=== PATIENT | male | born 1950 | race Caucasian/White ===

== ENCOUNTER 2016-02-14 18:26 | Observation (INO) | payer MEDICARE, OTHER ==
[2016-02-14] VITALS (7 sets, daily range): BP systolic 143–185; BP diastolic 76–95; PULSE 65–70; RESP 18–20; TEMP 98.2–98.7; O2SAT 96–98
[~2016-02-14] VITALS: Ht 193 cm; Wt 136.4 kg
[~2016-02-14 18:26] MED LIST: AMLO10 PO; ASPI81 PO; CLON1 PO; COZA100T PO; DICL75 PO; FOLI1TAB PO; GABA250S PO; HYDR-3533 PO; HYDR50TA15 PO; METF-324 PO; METH5SOL3 PO; NOVALIN 70/30 SQ; NOVO7030P2 SQ; OMEP20CA5 PO; SIMV20 PO; TOPR100T15 PO; VOLTAREN GEL TOP
--- NOTE | 2016-02-14 18:36 | PD ---
HPI Chief Complaint: chest pain Time Seen by Provider: 18:36 Travel History International Travel<30 days: No Contact w/Intl Traveler<30days: No History of Present Illness HPI 65-year-old male presents to the emergency department for evaluation of midsternal chest pain that radiates with numbness to both of his arms. Patient states this feels exactly how he felt when he had his last heart attack in 2000. He states that he had a stent placed to his right coronary artery in [place]. His current microfilm processor is Dr. Horn. He denies any recent stress test or cardiac catheterization. Patient states that he got 2 sprays of nitroglycerin on the ambulance which did help his pain. Patient took one aspirin at home and got another aspirin in route. He has a history of diabetes , hypertension, COPD, arthritis. Patient denies any weakness or syncope. Patient denies any recent surgeries or travel. Denies any abnormal leg swelling. No hemoptysis. Denies any cough or congestion. Patient states symptoms started at 3 PM with numbness to the right arm and then progressed to chest pain and left arm as well. PFSH Past Medical History COPD: Yes Coronary Artery Disease: Yes Diabetes: Yes Diminished Hearing: No GERD: Yes Hypertension: Yes Immunizations Current: No Past Surgical History Coronary Stent: Yes (x1 ) Other Surgery: Yes (carpal tunnel bilat, l inguinal hernia) Social History Alcohol Use: No Tobacco Use: No Substance Use: No Allergies-Medications (Allergen,Severity, Reaction): Coded Allergies: No Known Allergies (Verified , 02/14/16) Reported Meds & Prescriptions Reported Meds & Active Scripts Active Reported Lipitor (Atorvastatin Calcium) 80 Mg Tab 80 Mg PO HS Klonopin (Clonazepam) 1 Mg Tab 1 Mg PO BID Remeron (Mirtazapine) 30 Mg Tab 30 Mg PO HS Gabapentin 300 Mg Cap 300 Mg PO TID Omeprazole 20 Mg Cap Levothyroxine (Levothyroxine Sodium) 75 Mcg Tab 75 Mcg PO DAILY Lopressor (Metoprolol Tartrate) 50 Mg Tab 50 Mg PO BID Coreg (Carvedilol) 6.25 Mg Tab 6.25 Mg PO BID Maxidex Opth Drops (Dexamethasone Opth Drops) 0.1% Susp 1 Drop EACH EYE Q4H Incruse Ellipta Inh (Umeclidinium [place] Inh) 0.0625 Mg/Act Inh 62.5 Mcg INH DAILY Prazosin (Prazosin HCl) 2 Mg Cap 2 Mg PO BID Clonidine 168 HR Patch (Clonidine HCl) 0.2 Mg/24 Hr Patch 1 Patch T-DERMAL Q7D Lantus Solostar Pen Inj (Insulin Glargine) 300 Unit/3 Ml Pen 1 Units SQ Novolog Flexpen Inj (Insulin Aspart) 300 Unit/3 Ml Pen 1 Units SQ Ventolin Hfa 18 GM Inh (Albuterol Sulfate) 90 Mcg/Act Aer 2 Puff INH Q4-6H PRN Centrum Silver (Multiple Vitamins W/ Minerals) 1 Tab 1 Tab PO DAILY Aspirin 81 Mg Chew 81 Mg CHEW DAILY Review of Systems Except as stated in HPI: all other systems reviewed are Neg Physical Exam Narrative GENERAL: Well-developed well-nourished male patient, afebrile. SKIN: Warm and dry. HEAD: Normocephalic. Atraumatic. EYES: No scleral icterus. No injection or drainage. NECK: Supple, trachea midline. No JVD or lymphadenopathy. CARDIOVASCULAR: Regular rate and rhythm without murmurs, gallops, or rubs. RESPIRATORY: Breath sounds equal bilaterally. No accessory muscle use. Lungs sounds are clear to auscultation. GASTROINTESTINAL: Abdomen soft, non-tender, nondistended. MUSCULOSKELETAL: No cyanosis, or edema. BACK: Nontender without obvious deformity. No CVA tenderness. Data Data Last Documented VS Vital Signs Date Time Temp Pulse Resp B/P Pulse Ox O2 Delivery O2 Flow Rate FiO2 02/14/16 19:46 146/95 02/14/16 19:33 65 18 98 Nasal Cannula 2 02/14/16 18:28 98.2 Orders Electrocardiogram (02/14/16 18:35) Basic Metabolic Panel (Bmp) (02/14/16 18:35) Ckmb (Isoenzyme) Profile (02/14/16 18:35) Complete Blood Count With Diff (02/14/16 18:35) Magnesium (Mg) (02/14/16 18:35) Troponin I (02/14/16 18:35) Chest, Single Ap (02/14/16 18:35) Ecg Monitoring (02/14/16 18:35) Bilateral Bp Monitoring (02/14/16 18:35) Iv Access Insert/Monitor (02/14/16 18:35) Oximetry (02/14/16 18:35) Oxygen Administration (02/14/16 18:35) Sodium Chloride 0.9% Flush (Ns Flush) (02/14/16 18:45) CKMB (02/14/16 18:48) CKMB% (02/14/16 18:48) Admit Order (Ed Use Only) (02/14/16 20:04) Activity Bed Rest With Brp (02/14/16 20:06) Vital Signs (Adult) Q4H (02/14/16 20:06) Cardiac Rhythm .As Directed (02/14/16 20:06) ^ Notify Dr: Other .PRN (02/14/16 20:06) ^ Notify Dr. Parameters (02/14/16 20:06) Resp Oxygen Nasal Cannula (02/14/16 ) Ckmb (Isoenzyme) Profile (02/14/16 21:48) Ckmb (Isoenzyme) Profile (02/15/16 00:48) Troponin I (02/14/16 21:48) Troponin I (02/15/16 00:48) Electrocardiogram (02/14/16 21:48) Electrocardiogram (02/15/16 00:48) ^ Obtain (02/14/16 20:06) Sodium Chloride 0.9% Flush (Ns Flush) (02/14/16 20:15) Sodium Chloride 0.9% Flush (Ns Flush) (02/14/16 21:00) Labs Laboratory Tests Test 02/14/16 18:48 White Blood Count 5.7 TH/MM3 Red Blood Count 4.66 MIL/MM3 Hemoglobin 13.6 GM/DL Hematocrit 40.6 % Mean Corpuscular Volume 87.0 FL Mean Corpuscular Hemoglobin 29.1 PG Mean Corpuscular Hemoglobin 33.5 % Concent Red Cell Distribution Width 15.0 % Platelet Count 92 TH/MM3 Mean Platelet Volume 10.5 FL Neutrophils (%) (Auto) 57.7 % Lymphocytes (%) (Auto) 28.4 % Monocytes (%) (Auto) 9.2 % Eosinophils (%) (Auto) 3.3 % Basophils (%) (Auto) 1.4 % Neutrophils # (Auto) 3.3 TH/MM3 Lymphocytes # (Auto) 1.6 TH/MM3 Monocytes # (Auto) 0.5 TH/MM3 Eosinophils # (Auto) 0.2 TH/MM3 Basophils # (Auto) 0.1 TH/MM3 CBC Comment AUTO DIFF Differential Comment AUTO DIFF CONFIRMED Platelet Estimate LOW Platelet Morphology Comment NORMAL Red Cell Morphology Comment NORMAL Sodium Level 136 MEQ/L Potassium Level 3.7 MEQ/L Chloride Level 98 MEQ/L Carbon Dioxide Level 27.9 MEQ/L Anion Gap 10 MEQ/L Blood Urea Nitrogen 20 MG/DL Creatinine 1.25 MG/DL Estimat Glomerular Filtration 58 ML/MIN Rate Random Glucose 234 MG/DL Calcium Level 8.4 MG/DL Magnesium Level 1.9 MG/DL Total Creatine Kinase 330 U/L Creatine Kinase MB 5.1 NG/ML Creatine Kinase MB % 1.5 % Troponin I 0.03 NG/ML MDM Medical Decision Making Medical Screen Exam Complete: Yes Emergency Medical Condition: Yes Medical Record Reviewed: Yes Interpretation(s) chest x-ray - CONCLUSION: Mild chronic interstitial changes. No acute cardiopulmonary disease demonstrated. Differential Diagnosis STEMI versus NSTEMI versus electrolyte abnormality versus cardiac arrhythmia versus chest wall pain versus pneumothorax Narrative Course 65-year-old male presents to the emergency department for dilation of chest pain that he states felt like his previous [place]. EKG, CBC, BMP, CK, troponin, and magnesium are ordered and pending. Chest x-ray is ordered and pending. EKG shows SR, HR 68. CBC shows low platelets at 92, otherwise unremarkable. BMP shows glucose 234. CK is 330. Troponin is 0.03. Magnesium is 1.9. Chest x-ray shows mild chronic interstitial changes. No acute cardiopulmonary disease demonstrated. I discussed chest pain Center admission with the patient who agrees. Diagnosis Primary Impression: Chest pain Qualified Code: R07.9 - Chest pain, unspecified type Admitting Information Admitting Physician Requests: Awa Thomas Feb 14, 2016 18:36
[2016-02-14] MEDS ORDERED: SODIUM CHLORIDE 0.9% FLUSH 5 ML FLUSH IVF PRN ×2 (18:45→20:15)
[2016-02-14 19:01] LABS: AUTOMATED NEUTROPHIL # 3.3 TH/MM3 (1.8-7.7); BASOPHIL # 0.1 TH/MM3 (0-0.2); BASOPHIL % 1.4 % (0.0-2.0); EOSINOPHIL # 0.2 TH/MM3 (0-0.4); EOSINOPHIL % 3.3 % (0.0-4.0); HEMATOCRIT 40.6 % (39.0-51.0); LYMPH % 28.4 % (9.0-44.0); LYMPHOCYTE # 1.6 TH/MM3 (1.0-4.8); MEAN CORPUSCULAR HEMOGLOBIN 29.1 PG (27.0-34.0); MEAN CORPUSCULAR HGB CONC 33.5 % (32.0-36.0); MONO % 9.2 % (0.0-8.0); NEUT % 57.7 % (16.0-70.0); PLATELET COUNT 92 TH/MM3 (150-450); RED BLOOD COUNT 4.66 MIL/MM3 (4.50-5.90); WHITE BLOOD COUNT 5.7 TH/MM3 (4.0-11.0)
[2016-02-14 19:06] LABS: HEMO FLAGS AUTO DIFF
--- NOTE | 2016-02-14 19:08 | RADRPT ---
EXAM DATE/TIME: 02/14/2016 18:54 [facility] COMPARISON: No previous studies available for comparison. INDICATIONS : Chest pain. MEDICAL HISTORY : Myocardial infarction. Diabetes mellitus type I. Hypertension. SURGICAL HISTORY : Coronary artery stent. spinal stimulator. ENCOUNTER: Initial ACUITY: 1 day PAIN SCORE: 7/10 LOCATION: Bilateral chest FINDINGS: Mild, chronic basilar predominant interstitial lung disease again noted. No acute pneumonia seen. No pleural effusion or pneumothorax. Heart size stable, upper limits of normal. Spine stimulator leads are again noted. CONCLUSION: Mild chronic interstitial changes. No acute cardiopulmonary disease demonstrated. Michael Guardado MD on February 14, 2016 at 19:05 Board Certified Radiologist. This report was verified electronically.
[2016-02-14 19:37] LABS: BICARBONATE 27.9 MEQ/L (21.0-32.0); MAGNESIUM 1.9 MG/DL (1.5-2.5); POTASSIUM 3.7 MEQ/L (3.5-5.1)
[2016-02-14 19:40] LABS: PLATELET ESTIMATE SMEAR LOW (NORMAL); PLATELET MORPHOLOGY NORMAL (NORMAL); SCAN/DIFF AUTO DIFF CONFIRMED
[2016-02-14] MEDS ORDERED: ASPI81CH CHEW (19:45)
[2016-02-14] MEDS ORDERED: CLON1 PO (19:46)
[2016-02-14] MEDS ORDERED: VENTAER INH (19:46)
[2016-02-14] MEDS ORDERED: GABA300C5 PO (19:46)
[2016-02-14] MEDS ORDERED: CENTTAB PO (19:46)
[2016-02-14] MEDS ORDERED: UMEC1INH INH (19:46)
[2016-02-14] MEDS ORDERED: LANTINJ SQ (19:46)
[2016-02-14] MEDS ORDERED: REME30TA PO (19:46)
[2016-02-14] MEDS ORDERED: CLON0.2D T-DERMAL (19:46)
[2016-02-14] MEDS ORDERED: CARV6.25 PO (19:46)
[2016-02-14] MEDS ORDERED: OMEP20CA2 (19:46)
[2016-02-14] MEDS ORDERED: LIPI80TA PO (19:46)
[2016-02-14] MEDS ORDERED: MAXI0.1S3 EACH EYE (19:46)
[2016-02-14] MEDS ORDERED: LEVO75TA3 PO (19:46)
[2016-02-14] MEDS ORDERED: PRAZ2CAP PO (19:46)
[2016-02-14] MEDS ORDERED: NOVOINJ3 SQ (19:46)
[2016-02-14] MEDS ORDERED: METO-309 PO (19:46)
[2016-02-14 19:57] LABS: CKMB 5.1 NG/ML (0.5-3.6)
[2016-02-14] MEDS ORDERED: SODIUM CHLORIDE 0.9% FLUSH 5 ML FLUSH IVF SCH (21:00)
[2016-02-14 22:40] LABS: CKMB 4.8 NG/ML (0.5-3.6)
[2016-02-14] MEDS ORDERED: DEXTROSE 50% IN WATER 50 ML VIAL(D50) IV PUSH PRN (23:45)
[2016-02-14] MEDS ORDERED: GLUCAGON 1 MG/ML VIAL OTHER PRN (23:45)
[2016-02-15] VITALS (7 sets, daily range): BP systolic 178–186; BP diastolic 86–88; PULSE 67–69; RESP 12–18; TEMP 97.2–97.8; O2SAT 93–96
[2016-02-15] MEDS ORDERED: ATORVASTATIN 80 MG TAB PO SCH (00:12)
[2016-02-15] MEDS ORDERED: MIRTAZAPINE 15 MG TAB PO SCH (00:13)
[2016-02-15] MEDS ORDERED: INSULIN DETEMIR 100 UNITS/ML VIAL SQ SCH (00:13)
[2016-02-15] MEDS: CARVEDILOL 12.5 MG TAB PO SCH ×2 (00:25→13:28)
[2016-02-15] MEDS: GABAPENTIN 300 MG CAP PO SCH ×3 (00:25→13:28)
[2016-02-15] MEDS: clonazePAM 1 MG TAB PO SCH ×2 (00:25→09:00)
[2016-02-15 01:59] LABS: CKMB 4.9 NG/ML (0.5-3.6)
[2016-02-15] MEDS: MEDIUM DOSE INSULIN NOVOLOG SUPPLEMENTAL SCALE SQ SCH ×2 (06:24→11:00)
[2016-02-15] MEDS ORDERED: LISINOPRIL 10 MG TAB PO ONE (08:30)
[2016-02-15] MEDS ORDERED: RESP: ALBUTEROL 2.5 MG/IPRATROPIUM 0.5 MG NEB (PRN) INH (09:00)
--- NOTE | 2016-02-15 10:04 | MH ---
cc: YEISON TRACY MD DATE OF ADMISSION: 02/14/2016 DATE OF : 1950 CHIEF COMPLAINT Chest pain. HISTORY OF PRESENT ILLNESS This is a 65-year-old male with history of CAD with history of NH in 2000 with stenting of the RCA, that presents complaining of right arm feeling numb yesterday while getting ready for a green party. He states it lasted about 7 hours. He was mildly short of breath, nauseous and diaphoretic. He also had a tightness in the center of his chest that lasted 2 hours. ___ really was not there when he had his NH in 2000. He states in 2000 he had a numbness and tingling in his right arm that eventually moved into the left arm. He follows with Dr. Swenson over the last couple of years. He last saw him [id number] weeks ago. He states the last stress test was about 2 years ago in [place] but has not had one locally. He does not recall having a heart catheterization since his NH in 2000. Denies recent illnesses. Denies fevers or chills. He found nothing to worsen or improve his symptoms when he had them yesterday. PAST MEDICAL HISTORY 1. CAD with an NH in 2000 with a stent of his RCA. 2. Diabetes. 3. Hypertension. 4. Hyperlipidemia. 5. Hypothyroidism. 6. COPD. 7. Past history of tobacco abuse. FAMILY HISTORY His mom had a bypass. SOCIAL HISTORY The patient quit smoking 8 years ago but prior to that he smoked one-pack of cigarettes daily for 40 years. He averaged about one to two alcohol beverages a week. He denies illicit drugs. He has been 44 years. PAST SURGICAL HISTORY 1. Heart catheterization with stenting in 2000. 2. Bilateral carpal tunnel release. 3. Inguinal hernia repair. ALLERGIES NO KNOWN DRUG ALLERGIES. MEDICATIONS Include: 1. Prazosin. 2. Gabapentin. 3. Remeron. 4. Insulin. 5. Ventolin inhaler. 6. Klonopin. 7. Carvedilol. 8. Lopressor. 9. Clonidine patch. 10. Maxidex ophthalmic drops. 11. Atorvastatin. 12. Baby aspirin. 13. Omeprazole 20 mg daily. 14. Multivitamin. REVIEW OF SYSTEMS GENERAL: Denies fevers or chills. Denies recent illnesses. HEENT: Denies headache, earache, sore throat, difficulty swallowing. CARDIOVASCULAR: Describes the discomfort in his chest as mentioned above. There is diaphoresis. Denies sensation of heart beating rapidly or irregularly. No syncope. RESPIRATORY: He was mildly short of breath. No inspirational chest discomfort. Denies coughing, wheezing or hemoptysis. GI: Mildly nauseous but no emesis. Denies abdominal pain. Denies diarrhea, constipation or blood in stool. MUSCULOSKELETAL: Denies joint pain or edema. Denies calf pain or edema. NEUROVASCULAR: Denies headache or dizziness. ENDOCRINE: Denies polyuria or polydipsia. HEMATOLOGIC: Denies easy bruising. SKIN: Denies rash or itching. PHYSICAL EXAMINATION VITAL SIGNS: In the emergency department initially included a blood pressure 143/88, heart rate was 70, respirations 20, pulse oximetry 97% on room air and he was afebrile. Most recent vital signs include a blood pressure of 186/88, heart rate 69, respirations 18, pulse oximetry 94% on room air and he was afebrile. GENERAL: The patient is seen in the examination room in no apparent distress. He is very pleasant. He speaks in clear and complete sentences. HEENT: Head is atraumatic and normocephalic. NECK: The neck is supple without lymphadenopathy and trachea is midline. No JVD or carotid bruits. CARDIOVASCULAR: Regular rate and rhythm without murmur, gallop or rub. RESPIRATORY: Lungs are clear to auscultation bilaterally. No wheezing, rales or rhonchi. No reproducible chest wall discomfort. No use of accessory muscles. GI: Abdomen is nontender, nondistended. Bowel sounds are normal. No guarding or rebound. No obvious pulsatile mass or bruit. No CVA tenderness. Strong femoral pulses bilaterally. MUSCULOSKELETAL: Patient moving upper and lower extremities freely. No joint tenderness or edema. No calf tenderness or edema, no Homans' sign. Strong pulses in upper and lower extremities. NEUROVASCULAR: The patient is alert and oriented. Cranial nerves II-XII are grossly intact. No focal deficits and speech is clear. SKIN: No rashes and turgor is normal. LABORATORY DATA CBC is essentially unremarkable. Platelet count is somewhat decreased at 92,000. Basic metabolic panel has a glucose elevated at 234, GFR is decreased at 58, BUN elevated at 20. Serial cardiac enzymes had troponins are normal x3. CPK is elevated at 330, 316, 318. CK-MB is elevated at 5.1, 4.8, 4.9, however, CK-MB percents were normal x3. TSH is elevated at 5.020. IMAGING STUDIES Single view chest x-ray read by radiologist as mild chronic interstitial change. No acute cardiopulmonary disease demonstrated. Spinal stimulator leads are noted. EKGs Have sinus rhythm with nonspecific lateral ST-T changes. ASSESSMENT AND PLAN 1. Atypical chest pain: The patient has had serial cardiac enzymes and EKGs for ruling out purposes. He has been seen by Dr. Yeison Tracy of cardiology in the chest pain center. Dr. Tracy attempted to speak with the patient's bacteriologist soil, Dr. Swenson but as of yet has not heart back from the bacteriologist soil. At this time the patient will undergo a Lexiscan and if it were to be normal, he will be discharged home and if abnormal he will be admitted to the hospital and have his bacteriologist soil consulted. 2. History of CAD: The patient will have this reassessed with stress testing. 3. Diabetes: Will have sliding scale insulin coverage. Resume his medicine at discharge. 4. Hypertension: He has been hypertensive. Will add lisinopril which also will help for renal protection with his history of diabetes. 5. Hyperlipidemia: Continue current medication. 6. Hypothyroidism: The patient states medication was recently increased to 80 mcg. Will need to have this further assessed with his physician as his TSH is still a little elevated. 7. COPD: The patient quit smoking 8 years ago. He will have DuoNebs p.r.n. Resume his medication at discharge. The patient is stable at this time. He is agreeable to this plan. Dictated by: Kleber Lawrence PA-C MD FÉLIX Cornell/CHYNA /8:52 AM 10:03 AM
[2016-02-15] MEDS ORDERED: REGADENOSON INJ 0.4 MG/5 ML SYR ONE (11:07)
--- NOTE | 2016-02-15 12:38 | RADRPT ---
EXAM DATE/TIME: 02/15/2016 10:33 [facility] COMPARISON: No previous studies available for comparison. INDICATIONS : Angina with numbness radiating into both arms. Angina. DOSE: 35 mCi Tc99m Myoview at stress. 11 mCi Tc99m Myoview at rest. 0.4 mg Lexiscan STRESS SYMPTOMS: Dyspnea. EJECTION FRACTION: 49% MEDICAL HISTORY : Hernia, inguinal. Hypertension. Myocardial infarction. Hypercholesterolemia. Diabetes SURGICAL HISTORY : Carpal tunnel. Cardiac stent ENCOUNTER: Initial ACUITY: 1 day PAIN SCALE: 2/10 LOCATION: Midsternal chest pain TECHNIQUE: The patient underwent pharmacologic stress with infusion of prescribed dose. Continuous ECG tracing was monitored during stress. Gated SPECT imaging was performed after stress and conventional SPECT i maging was performed at rest. The examination was performed on a SPECT/CT scanner, both attenuation and non-corrected datasets were reviewed. FINDINGS: DISTRIBUTION: The maximum perfused segment at stress is in the septal wall. PERFUSION STUDY: Tiny fixed defects are noted at the anterior wall and apex. GATED STUDY: Global hypokinesis. CONCLUSION: 1. No definite reversible perfusion defects are identified to suggest stress-induced myocardial ische jordyn. RISK CATEGORY: Intermediate (1-3% Annual Mortality Rate) Ben Gil MD on February 15, 2016 at 12:34 Board Certified Radiologist. This report was verified electronically.
[2016-02-15] MEDS ORDERED: LISI10TA3 PO (13:01)
--- NOTE | 2016-02-15 13:03 | HHI.DCPOC ---
Discharge Care Plan Diagnosis: (1) Chest pain (2) CAD (coronary artery disease) (3) H/O heart artery stent (4) DM (diabetes mellitus) (5) Hypertension (6) Hyperlipidemia (7) COPD (chronic obstructive pulmonary disease) (8) Hypothyroidism Goals to Promote Your Health * To prevent worsening of your condition and complications * To maintain your health at the optimal level Directions to Meet Your Goals Take your medications as prescribed Follow your dietary instruction Follow activity as directed Keep your appointments as scheduled Take your immunizations and boosters as scheduled If your symptoms worsen call your PCP, if no PCP go to Urgent Care Center or Emergency Room Smoking is Dangerous to Your Health. Avoid second hand smoke Call the 24-hour hour crisis hotline for domestic abuse at Kleber Lawrence Feb 15, 2016 13:03
[2016-02-15 17:35] LABS: HEMOGLOBIN A1a 1.1 %; HEMOGLOBIN Ao 80.4 %; HEMOGLOBIN F 1.3 %; HEMOGLOBIN LA1C 2.5 %; HEMOGLOBIN P3 4.2 %
--- NOTE | 2016-02-16 09:10 | TR ---
Date Performed: 02/15/2016 Time Performed: 11:04:37 DOCTOR: Monserrat hCo DRUG LIST: CLINICAL HISTORY: REASON FOR TEST: CHEST PAIN REASON FOR ENDING: OBSERVATION: CONCLUSION: Lexiscan stress test was performed under standard four minute protocol. Radionuclid e was injected one minute prior to ending the test. No electrocardiographic abormalities were present to suggest ischemia. Nuclear imaging and interpretation are pending. COMMENTS:
--- NOTE | 2016-02-16 09:12 | EKG ---
Date Performed: 02/15/2016 Time Performed: 00:18:22 PTAGE: 65 years EKG: Sinus rhythm LEFT VENTRICULAR HYPERTROPHY AND ST-T CHANGE ABNORMAL ECG Since PREVIOUS TRACING , no significant change noted PREVIOUS TRACIN02/14/2016 21.13 DOCTOR: Monserrat Cho Interpretating Date/Time 02/16/2016 09:11:24
--- NOTE | 2016-02-16 09:13 | EKG ---
Date Performed: 02/14/2016 Time Performed: 21:13:27 PTAGE: 65 years EKG: Sinus rhythm LEFT VENTRICULAR HYPERTROPHY AND ST-T CHANGE ABNORMAL ECG Since PREVIOUS TRACING , no significant change noted PREVIOUS TRACIN02/14/2016 18.47 DOCTOR: Monserrat Cho Interpretating Date/Time 02/16/2016 09:12:16
--- NOTE | 2016-02-16 09:14 | EKG ---
Date Performed: 02/14/2016 Time Performed: 18:47:01 PTAGE: 65 years EKG: Sinus rhythm BORDERLINE LEFT AXIS DEVIATION LEFT VENTRICULAR HYPERTROPHY AND ST-T CHANGE ABNORMAL ECG Since PREVIOUS TRACING , no significant change noted PREVIOUS TRACIN08/12/2014 14.38 DOCTOR: Monserrat Cho Interpretating Date/Time 02/16/2016 09:13:23
== END 2016-02-15 14:29 | disposition home or self-care (01) ==
LOC: NEPC 18:26 → NEDA 20:06 → NEPGCP 22:28
PROVIDERS: ADMIT Family Medicine; ATTEND Family Medicine
DX: R07.89 Other chest pain (principal); I25.10 Atherosclerotic heart disease of native coronary artery without angina pectoris; E11.9 Type 2 diabetes mellitus without complications; J44.9 Chronic obstructive pulmonary disease, unspecified; E03.9 Hypothyroidism, unspecified; E78.5 Hyperlipidemia, unspecified; I10 Essential (primary) hypertension; I25.2 Old myocardial infarction; R11.0 Nausea; K21.9 Gastro-esophageal reflux disease without esophagitis; R20.0 Anesthesia of skin; M19.90 Unspecified osteoarthritis, unspecified site; Z87.891 Personal history of nicotine dependence; Z79.4 Long term (current) use of insulin; Z95.5 Presence of coronary angioplasty implant and graft
CPT/HCPCS: 71010; 78452; 80048; 82550; 82552; 82948; 83036; 83735; 84443; 84484; 85025; 93005; 93017; 99285; A9502; G0378; J2785

== ENCOUNTER → 2016-09-27 | Outpatient (CLI) | payer MEDICARE, OTHER ==
[~2016-09-27] MED LIST changes: -AMLO10 PO; -ASPI81 PO; +ASPI81CH CHEW; +CARV6.25 PO; +CENTTAB PO; +CLON0.2D T-DERMAL; -COZA100T PO; -DICL75 PO; -FOLI1TAB PO; -GABA250S PO; +GABA300C5 PO; -HYDR-3533 PO; -HYDR50TA15 PO; +LANTINJ SQ; +LEVO75TA3 PO; +LIPI80TA PO; +LISI10TA3 PO; +MAXI0.1S3 EACH EYE; -METF-324 PO; -METH5SOL3 PO; +METO-309 PO; -NOVALIN 70/30 SQ; -NOVO7030P2 SQ; +NOVOINJ3 SQ; +OMEP20CA2; -OMEP20CA5 PO; +PRAZ2CAP PO; +REME30TA PO; -SIMV20 PO; -TOPR100T15 PO; +UMEC1INH INH; +VENTAER INH; -VOLTAREN GEL TOP
[2016-09-27 09:30] LABS: BLOOD GAS BASE EXCESS 4.3 mmol/L (-2-2); BLOOD GAS CARBOXYHEMOGLOBIN 1.7 % (0-4); BLOOD GAS HCO3 29 mmol/L (22-26); BLOOD GAS O2 HGB SATURATION 93 % (90-100); BLOOD GAS OXYGEN CONTENT 17.5 Vol % (12.0-20.0); BLOOD GAS PCO2 45 mmHg (38-42); BLOOD GAS PO2 75 mmHg (61-120); BLOOD GAS TOTAL HGB 13.4 G/DL (12.0-16.0); CRITICAL VALUE NO; DRAW SITE RT RADIAL; NUMBER OF ARTERIAL PUNCTURES 1; OXYGEN DEVICE RA; STAT NO; ULNAR PULSE Y
--- NOTE | 2016-09-29 11:25 | RSPPFT ---
DATE OF PROCEDURE: 09/27/56 COMMENTS: Spirometry shows FVC of 2.2 at 41% of predicted, FEV1 of 1.7 at 40%, FEV1/FVC ratio is normal. Flow is decreased at FEF 25, FEF 50, FEF 75 and FEF 25-75. There is a paradoxical response to acutely inhaled bronchodilator treatment. Lung volumes show residual volume is decreased. TLC is decreased. Diffusion capacity is decreased. Flow volume loop indicates a normal pattern. Room air arterial blood gases show pH of 7.42, PCO2 of 46, PO2 of 75, BiCarb of 29. 6-minute walk test shows no de-saturation. IMPRESSION: 1. Moderately severe restrictive lung disease. 2. Paradoxical response to bronchodilator treatment. 3. Decreased lung volumes. 4. Decreased diffusion capacity. 5. Blood gases show normal oxygenation. 6. 6-minute walk test shows no de-saturation.
== END ==
LOC: PHRSP 08:32
PROVIDERS: ATTEND Specialist
DX: J44.9 Chronic obstructive pulmonary disease, unspecified (principal)
CPT/HCPCS: 36600; 82805; 94060; 94620; 94726; 94729